=== PATIENT | male | born 1995 | race Caucasian/White ===

== ENCOUNTER 2021-01-02 15:50 | Emergency (ER) | payer OTHER ==
[~2021-01-02] VITALS: Ht 167.6 cm; Wt 65.8 kg
--- NOTE | 2021-01-02 16:19 | NUR ---
Dr. Cunningham at bedside for MSE.
[2021-01-02 16:52] LABS: BASOPHILS % (AUTO) 0.3 % (0.0-2.0); EOSINOPHILS # (AUTO) 0.1 K/uL (0.0-0.7); EOSINOPHILS % (AUTO) 1.3 % (0.0-7.0); HEMATOCRIT 36.7 % (36.7-47.1); HEMOGLOBIN 12.8 g/dL (12.5-16.3); LYMPHOCYTES # (AUTO) 2.7 K/uL (20.0-40.0); LYMPHOCYTES % (AUTO) 43.6 % (20.5-51.5); MEAN CORPUSCULAR HEMOGLOBIN 28.4 uug (23.8-33.4); MEAN CORPUSCULAR HGB CONC 35 g/dL (32.5-36.3); MEAN CORPUSCULAR VOLUME 81.4 fL (73.0-96.2); MONOCYTES # (AUTO) 0.5 K/uL (2.0-10.0); MONOCYTES % (AUTO) 8.7 % (0.0-11.0); NEUTROPHILS # (AUTO) 2.9 K/uL (1.8-8.9); NEUTROPHILS % (AUTO) 46.1 % (38.5-71.5); PLATELET COUNT (AUTO) 332 K/uL (152-348); RED BLOOD CELL COUNT(AUTO) 4.52 MIL/uL (4.06-5.63); WHITE BLOOD COUNT (AUTO) 6.3 K/uL (3.6-10.2)
[2021-01-02 16:56] LABS: CARBON DIOXIDE 34 mmol/L (21-32); CHLORIDE 95 mmol/L (98-107); CREATININE 0.9 mg/dL (0.6-1.3); GLUCOSE 84 mg/dL (74-106); POTASSIUM 3.1 mmol/L (3.5-5.1); UREA NITROGEN, BLOOD 12 mg/dL (7-18)
[2021-01-02 17:01] LABS: ACETAMINOPHEN < 2.0 ug/mL (10-30); ALANINE AMINOTRANSFERASE 35 U/L (16-63); ALKALINE PHOSPHATASE 59 U/L (50-136); ASPARTATE AMINOTRANSFERASE 35 U/L (15-37); BILIRUBIN,DIRECT 0.1 mg/dL (0.0-0.2); BILIRUBIN,TOTAL 0.4 mg/dL (0.2-1.0); TOTAL PROTEIN, SERUM 7.5 g/dL (6.4-8.2)
[2021-01-02 17:03] LABS: ETHANOL < 3 MG/DL (0-0)
[2021-01-02] MEDS: POTASSIUM CHLORIDE 20 MEQ TAB.PRT.SR PO ONE (17:15)
[2021-01-02] MEDS ORDERED: POTASSIUM CHLORIDE 20 MEQ TAB.PRT.SR ONE (17:25)
[2021-01-02 17:58] LABS: *BLOOD, URINE NEGATIVE (NEGATIVE); *CLARITY,URINE CLEAR (CLEAR); *COLOR,URINE YELLOW (YELLOW); *KETONES,URINE NEGATIVE (NEGATIVE); *UROBILINOGEN,URINE 0.2 E.U./dl (NORMAL); LEUKOCYTE ESTERASE ,URINE NEGATIVE (NEGATIVE); NITRITE, URINE NEGATIVE (NEGATIVE); UGLUCOSE NEGATIVE (NEGATIVE)
[2021-01-02 18:02] LABS: *BILIRUBIN,URIN 1+ (NEGATIVE)
[2021-01-02 18:07] LABS: *AMPHETAMINE, URINE NEGATIVE (NEGATIVE); *CANNABINOID, URINE POSITIVE (NEGATIVE); *COCCAINE, URINE POSITIVE (NEGATIVE); *OPIATE, URINE NEGATIVE (NEGATIVE); *PHENCYCLIDINE SCREEN,URINE NEGATIVE (NEGATIVE)
--- NOTE | 2021-01-02 18:22 | NUR ---
Pt has been medically cleared for Detox. Patient discharged in stable condition. Written and verbal after care instructions given. Patient verbalizes understanding of instructions. Stressed follow up or return to ER for worsening s/s. Ambulated out of ED in steady gait, with all results of diagnostic tests done.
[2021-01-02 18:23] VITALS: BP 120/75
== END 2021-01-02 18:23 | disposition home or self-care (01) ==
LOC: ER 15:55
DX: F15.10 Other stimulant abuse, uncomplicated (principal); F14.10 Cocaine abuse, uncomplicated; F13.10 Sedative, hypnotic or anxiolytic abuse, uncomplicated; M79.7 Fibromyalgia; R00.0 Tachycardia, unspecified; Z20.822 Contact with and (suspected) exposure to COVID-19
CPT/HCPCS: 36415; 85025; A4663; G0480

== ENCOUNTER 2021-02-18 22:01 | Emergency (ER) | payer OTHER ==
[~2021-02-18] VITALS: Ht 167.6 cm; Wt 68.0 kg
[2021-02-18] MEDS ORDERED: IV NORMAL SALINE 1000 ML BAG IV ONE (22:45)
--- NOTE | 2021-02-18 22:50 | NUR ---
Patient exhibiting bizarre behavior, making groaning noises, purring, rolling his eyes back. However, the patient is able to answer all my questions regarding his A&O status and he is A&Ox4. Patient is also sinus tach on the monitor. MD Herzog is aware.
[2021-02-18 23:01] LABS: BASOPHILS % (AUTO) 0.5 % (0.0-2.0); EOSINOPHILS % (AUTO) 0.1 % (0.0-7.0); HEMATOCRIT 40.9 % (36.7-47.1); HEMOGLOBIN 13.9 g/dL (12.5-16.3); LYMPHOCYTES # (AUTO) 2.7 K/uL (20.0-40.0); LYMPHOCYTES % (AUTO) 28.2 % (20.5-51.5); MEAN CORPUSCULAR HEMOGLOBIN 27.3 uug (23.8-33.4); MEAN CORPUSCULAR HGB CONC 34 g/dL (32.5-36.3); MEAN CORPUSCULAR VOLUME 80.6 fL (73.0-96.2); MONOCYTES # (AUTO) 0.8 K/uL (2.0-10.0); MONOCYTES % (AUTO) 8.3 % (0.0-11.0); NEUTROPHILS % (AUTO) 62.9 % (38.5-71.5); PLATELET COUNT (AUTO) 338 K/uL (152-348); RED BLOOD CELL COUNT(AUTO) 5.08 MIL/uL (4.06-5.63); WHITE BLOOD COUNT (AUTO) 9.5 K/uL (3.6-10.2)
[2021-02-18 23:06] LABS: CARBON DIOXIDE 28 mmol/L (21-32); CHLORIDE 96 mmol/L (98-107); GLUCOSE 120 mg/dL (74-106); POTASSIUM 3.4 mmol/L (3.5-5.1); UREA NITROGEN, BLOOD 19 mg/dL (7-18)
[2021-02-18 23:12] LABS: ETHANOL < 3 MG/DL (0-0)
[2021-02-18 23:19] LABS: THYROID STIMULATING HORMONE 1.496 mIU/mL (0.358-3.740)
[2021-02-18 23:21] LABS: ACETAMINOPHEN < 2.0 ug/mL (10-30); ALANINE AMINOTRANSFERASE 38 U/L (16-63); ALKALINE PHOSPHATASE 60 U/L (50-136); ASPARTATE AMINOTRANSFERASE 60 U/L (15-37); BILIRUBIN,DIRECT 0.2 mg/dL (0.0-0.2); BILIRUBIN,TOTAL 0.6 mg/dL (0.2-1.0); CREATINE KINASE, TOTAL 1904 U/L (39-308); TOTAL PROTEIN, SERUM 7.8 g/dL (6.4-8.2)
--- NOTE | 2021-02-18 23:42 | NUR ---
pearl technician Mahesh called to inform COVID rapid result is negative. MD Herzog aware.
--- NOTE | 2021-02-18 23:43 | NUR ---
Patient states he is unable to provide urine for sample, he attempted, will try again later.
[2021-02-19] MEDS ORDERED: MAGNESIUM OXIDE 400 MG TABLET PO ONE
[2021-02-19] MEDS ORDERED: POTASSIUM CHLORIDE 20 MEQ TAB.PRT.SR PO ONE
[2021-02-19] MEDS ORDERED: IV NS 1000 ML 1,000 ML IV ONE
[2021-02-19] MEDS ORDERED: MAGNESIUM OXIDE 400 MG TABLET ONE (00:17)
[2021-02-19] MEDS ORDERED: POTASSIUM CHLORIDE 20 MEQ TAB.PRT.SR ONE (00:17)
[2021-02-19 00:24] LABS: *BILIRUBIN,URIN 1+ (NEGATIVE); *CLARITY,URINE CLEAR (CLEAR); *COLOR,URINE YELLOW (YELLOW); *KETONES,URINE 1+ (NEGATIVE); *UROBILINOGEN,URINE 0.2 E.U./dl (NORMAL); LEUKOCYTE ESTERASE ,URINE NEGATIVE (NEGATIVE); NITRITE, URINE NEGATIVE (NEGATIVE); PH,URINE 5.5 (5.0-8.0); UGLUCOSE NEGATIVE (NEGATIVE)
[2021-02-19 00:26] LABS: *BLOOD, URINE TRACE (NEGATIVE)
[2021-02-19 00:32] LABS: BACTERIA,URINE NONE SEEN /HPF (NONE SEEN); COARSE GRANULAR CASTS,URINE 0-3 /LPF; MUCUS,URINE MODERATE /LPF (0-FEW); SQUAMOUS EPITHELIAL CELL,UR FEW /HPF (NONE SEEN); WBC,URINE 0-3 /HPF (0-3)
[2021-02-19 00:51] LABS: *AMPHETAMINE, URINE NEGATIVE (NEGATIVE); *CANNABINOID, URINE POSITIVE (NEGATIVE); *COCCAINE, URINE NEGATIVE (NEGATIVE); *OPIATE, URINE NEGATIVE (NEGATIVE); *PHENCYCLIDINE SCREEN,URINE NEGATIVE (NEGATIVE)
[2021-02-19 01:00] VITALS: BP 120/72
--- NOTE | 2021-02-19 01:00 | NUR ---
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 Written and verbal after care instructions given. Patient verbalizes understanding of instructions. Stressed follow up or return to ER for worsening s/s. Patient ambulates with steady gait, V/S stable, IV removed, patient left with all belongings.
== END 2021-02-19 01:00 | disposition home or self-care (01) ==
LOC: ER 22:02
DX: F11.13 Opioid abuse with withdrawal (principal); E87.6 Hypokalemia; M62.82 Rhabdomyolysis; F17.210 Nicotine dependence, cigarettes, uncomplicated; Z20.822 Contact with and (suspected) exposure to COVID-19; R00.0 Tachycardia, unspecified; R03.0 Elevated blood-pressure reading, without diagnosis of hypertension
CPT/HCPCS: 36415; 84443; 85025; 93005; G0480; J7030

== ENCOUNTER 2021-06-05 21:26 | Emergency (ER) | payer OTHER ==
[~2021-06-05] VITALS: Ht 170.2 cm; Wt 81.6 kg
[2021-06-05] MEDS ORDERED: NALOXONE HCL 0.4 MG/ML AMPUL IV ONE (21:30)
--- NOTE | 2021-06-05 21:35 | NUR ---
Seizure precautions put into place. Padding placed all along gurney to protect patient.
--- NOTE | 2021-06-05 21:35 | NUR ---
Patient is lethargic, A&Ox0 unable to answer questions, confused, unable to follow directions. MD Nickolas Boggs made aware.
[2021-06-05] MEDS ORDERED: NALOXONE HCL 0.4 MG/ML AMPUL ONE ×2 (21:38→21:51)
[2021-06-05] MEDS ORDERED: LIDOCAINE 2% (UROJET) 10 ML JELLY MM ONE (21:45)
--- NOTE | 2021-06-05 21:48 | NUR ---
[employer] [address] [facility], officers Denny (Serial #:[id number] ) and Edward (Serial #:[id number] ) at bedside interviewing the patient.
[2021-06-05 21:58] LABS: HEMATOCRIT 41.1 % (36.7-47.1); MEAN CORPUSCULAR HEMOGLOBIN 27.9 uug (23.8-33.4); MEAN CORPUSCULAR VOLUME 79.9 fL (73.0-96.2); PLATELET COUNT (AUTO) 300 K/uL (152-348)
[2021-06-05] MEDS ORDERED: NALOXONE HCL 0.4 MG/ML AMPUL IM ONE (22:00)
[2021-06-05] MEDS ORDERED: levETIRAcetam IV 500 MG in IV DEXTROSE 5% 100 ML IV ONE (22:00)
[2021-06-05] MEDS ORDERED: levETIRAcetam 500 MG/5 ML VIAL IV ONE (22:01)
[2021-06-05 22:03] LABS: CARBON DIOXIDE 27 mmol/L (21-32); CHLORIDE 108 mmol/L (98-107); CREATININE 0.9 mg/dL (0.6-1.3); GLUCOSE 80 mg/dL (74-106); POTASSIUM 3.5 mmol/L (3.5-5.1); UREA NITROGEN, BLOOD 8 mg/dL (7-18)
[2021-06-05 22:05] LABS: ETHANOL < 3 MG/DL (0-0)
[2021-06-05 22:08] LABS: ACETAMINOPHEN < 2.0 ug/mL (10-30); ALANINE AMINOTRANSFERASE 16 U/L (16-63); ALKALINE PHOSPHATASE 44 U/L (50-136); ASPARTATE AMINOTRANSFERASE 12 U/L (15-37); BILIRUBIN,DIRECT 0.2 mg/dL (0.0-0.2); BILIRUBIN,TOTAL 0.7 mg/dL (0.2-1.0); TOTAL PROTEIN, SERUM 6.7 g/dL (6.4-8.2)
--- NOTE | 2021-06-05 22:15 | NUR ---
Went with patient and technology methodology consultant to CT scan with monitor attached. Monitored patient throughout CT scan.
--- NOTE | 2021-06-05 22:28 | NUR ---
Returned patient from CT scan to his room, no issues occurred during CT scan. Will continue to monitor.
--- NOTE | 2021-06-05 22:48 | NUR ---
Patient has become alert and orientated x 4, able to answer all questions, cooperative no longer lethargic. MD Nickolas Boggs notified.
--- NOTE | 2021-06-05 22:53 | NUR ---
Patient requested to talk to Carlisle a guest relations representative from his rehab facility. Patient connected to Carlisle using hospital phone at [phone].
[2021-06-05 22:58] LABS: *BILIRUBIN,URIN NEGATIVE (NEGATIVE); *BLOOD, URINE NEGATIVE (NEGATIVE); *CLARITY,URINE CLEAR (CLEAR); *COLOR,URINE YELLOW (YELLOW); *KETONES,URINE NEGATIVE (NEGATIVE); LEUKOCYTE ESTERASE ,URINE NEGATIVE (NEGATIVE); NITRITE, URINE NEGATIVE (NEGATIVE); UGLUCOSE NEGATIVE (NEGATIVE)
[2021-06-05 23:05] LABS: BACTERIA,URINE FEW /HPF (NONE SEEN); MUCUS,URINE MODERATE /LPF (0-FEW); RBC,URINE 0-3 /HPF (0-3); SQUAMOUS EPITHELIAL CELL,UR MODERATE /HPF (NONE SEEN)
[2021-06-05 23:10] LABS: *AMPHETAMINE, URINE NEGATIVE (NEGATIVE); *CANNABINOID, URINE POSITIVE (NEGATIVE); *COCCAINE, URINE POSITIVE (NEGATIVE); *OPIATE, URINE NEGATIVE (NEGATIVE); *PHENCYCLIDINE SCREEN,URINE NEGATIVE (NEGATIVE)
--- NOTE | 2021-06-05 23:11 | NUR ---
Patient is resting comfortably in bed upright, watching television. No acute distress noted.
--- NOTE | 2021-06-05 23:35 | NUR ---
Patient voiced concerns over potential delays in being able to take his prescribed medications that he has at his rehabilitation facility. MD Nickolas Boggs made aware.
--- NOTE | 2021-06-05 23:38 | NUR ---
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
[2021-06-05] MEDS ORDERED: LORAZEPAM 0.5 MG TABLET PO ONE (23:45)
[2021-06-05] MEDS ORDERED: LORAZEPAM 1 MG TABLET ONE (23:47)
--- NOTE | 2021-06-05 23:58 | NUR ---
Rehabilitation staff arrived to pickle maker patient.
[2021-06-06] VITALS: BP 132/88
--- NOTE | 2021-06-06 | NUR ---
Patient discharged to home in stable condition. Written and verbal after care instructions given. Patient verbalizes understanding of instructions. Stressed follow up or return to ER for worsening s/s. Patient ambulates with steady gait, V/S stable, left with rehabilitation staff hospital insurance representative, and left with all personal belongings with IV line removed.
== END 2021-06-06 | disposition home or self-care (01) ==
LOC: ER 21:26
DX: R41.0 Disorientation, unspecified (principal); F19.10 Other psychoactive substance abuse, uncomplicated; F17.210 Nicotine dependence, cigarettes, uncomplicated; M79.7 Fibromyalgia; F11.20 Opioid dependence, uncomplicated; Z88.2 Allergy status to sulfonamides; Z88.8 Allergy status to other drugs, medicaments and biological substances; R94.31 Abnormal electrocardiogram [ECG] [EKG]
CPT/HCPCS: 36415; 70450; 80048; 80076; 80299; 80307; 80320; 81001; 85025; 93005; 96372; 96374; 96375; 99291; 99406; J1953; J2310 ×2; J7060; A4663; C1758; G0480